=== PATIENT | female | born 1930 | race Caucasian/White ===

== ENCOUNTER 2017-01-18 18:56 | Emergency (ER) | payer MEDICARE, MEDICAID ==
[~2017-01-18] VITALS: Ht 165.1 cm; Wt 81.6 kg
[~2017-01-18 18:56] MED LIST: ASPI81TA31 PO; ATOR10TA PO; CHOL10005 PO; CYAN1TAB43 PO; VALS160T2 PO
--- NOTE | 2017-01-18 19:18 | NUR ---
Patient discharged to home in stable conditon. Written and verbal after care instructions given. Patient verbalizes understanding of instructions.
== END 2017-01-18 19:19 | disposition home or self-care (01) ==
LOC: ER 18:59
DX: J02.9 Acute pharyngitis, unspecified (principal); R05 Cough; F10.20 Alcohol dependence, uncomplicated; I10 Essential (primary) hypertension; Z79.82 Long term (current) use of aspirin
CPT/HCPCS: 99283; A4663

== ENCOUNTER 2020-11-29 20:27 | Inpatient (IN) | payer MEDICARE, OTHER ==
[~2020-11-29] VITALS: Ht 167.6 cm; Wt 88.9 kg
[~2020-11-29 20:27] MED LIST changes: -CHOL10005 PO; -CYAN1TAB43 PO
--- NOTE | 2020-11-29 21:00 | NUR ---
Received a 89 yr old female from [facility] to [facility] with admitting diagnosis S/P R HIP REPLACEMENT 11/27/20. Hx of gout,CAD,HTN,HDL,obesity,ANAND, CHF, AAOx3,Palestinian speaking, able to make needs known. Needs attended. NO SOB noted on RA saturating at 88%. Place NC on 2L saturating @ 97%. Pt is WBAT, on bed rest. Skin assessment completed. multiple bruising noticed. Right hip original dressing dry and intact, no drainage noted. No s/s of infection. No acute distress noted at this moment. Belongings list completed and placed in chart. Oriented pt to the room. Safety measures in place. Incontinent on bedpan. Denies any pain nor any discomfort at the moment. Dr Gamez aware of patient's admission and he said he will reconcile meds. Dr Obando also made aware of patient's admission. Continue with plan of care.
[2020-11-29 21:29] VITALS: BP 125/52
[2020-11-29] MEDS ORDERED: Z GUARD REMEDY PASTE 57 GM TUBE TOP PRN (21:30)
[2020-11-29] MEDS ORDERED: METF-440 PO (22:25)
[2020-11-29] MEDS ORDERED: ASPI-866 PO (22:25)
[2020-11-29] MEDS ORDERED: OLME1TAB88 PO (22:25)
[2020-11-29] MEDS ORDERED: ALLO100T PO (22:25)
[2020-11-29] MEDS ORDERED: SPIR25TA6 PO (22:25)
[2020-11-29] MEDS ORDERED: CHOL100043 PO (22:25)
[2020-11-29] MEDS ORDERED: ATOR20TA PO (22:25)
[2020-11-29] MEDS ORDERED: OMEP20CA15 PO (22:25)
[2020-11-29] MEDS: HYDROCODONE/APAP 10-325 MG TABLET PO PRN (23:14)
--- NOTE | 2020-11-29 23:30 | NUR ---
Assisted pt on the bedpan, not voiding yet. will monitor. c/o of pain 8/10 in right hip, administered PRN NORCO, will monitor for effectiveness. Safety measures maintained. Call light and all personal items within reach. Will continue to monitor.
--- NOTE | 2020-11-30 01:20 | NUR ---
pt is c/o of discomfort, states " need to pee, but can't. Assisted onto bedpan, no void yet. performed bladder scan, 315ml noted. Notified MD Limon, Hillary, with new orders of Solis catheter placement. Solis cath inserted 16FR, tolerated well, no acute distress noted. Output 700ml, pt states " I feel so much better." Pt is resting in bed, all needs attended too. Will continue plan of care.
[2020-11-30 04:27] VITALS: BP 124/50
[2020-11-30] MEDS: PANTOPRAZOLE SODIUM 40 MG TABLET.DR PO SCH (06:04)
[2020-11-30 07:01] LABS: BASOPHILS % (AUTO) 0.5 % (0.0-2.0); EOSINOPHILS # (AUTO) 0.2 K/uL (0.0-0.7); EOSINOPHILS % (AUTO) 1.7 % (0.0-7.0); HEMATOCRIT 24.1 % (31.2-41.9); HEMOGLOBIN 8.1 g/dL (10.9-14.3); LYMPHOCYTES % (AUTO) 10.6 % (20.5-51.5); MEAN CORPUSCULAR HEMOGLOBIN 32.9 uug (24.7-32.8); MEAN CORPUSCULAR HGB CONC 34 g/dL (32.3-35.6); MEAN CORPUSCULAR VOLUME 97.7 fL (75.5-95.3); MONOCYTES # (AUTO) 0.9 K/uL (2.0-10.0); MONOCYTES % (AUTO) 9.1 % (0.0-11.0); NEUTROPHILS # (AUTO) 7.3 K/uL (1.8-8.9); NEUTROPHILS % (AUTO) 78.1 % (38.5-71.5); PLATELET COUNT (AUTO) 230 K/uL (179-408); WHITE BLOOD COUNT (AUTO) 9.4 K/uL (3.8-11.8)
[2020-11-30 07:14] LABS: RED BLOOD CELL COUNT(AUTO) 2.46 MIL/uL (3.63-4.92)
[2020-11-30 07:19] LABS: BILIRUBIN,TOTAL 0.4 mg/dL (0.2-1.0); CREATININE 1.2 mg/dL (0.6-1.3); POTASSIUM 3.7 mmol/L (3.5-5.1)
--- NOTE | 2020-11-30 07:28 | NUR ---
Handoff from Nereida Ford RN. Jon Belcher RN
[2020-11-30 08:18] VITALS: BP 120/52
[2020-11-30] MEDS: ALLOPURINOL 100 MG TABLET PO SCH (08:22)
[2020-11-30] MEDS: SPIRONOLACTONE 25 MG TABLET PO SCH ×2 (08:22→17:04)
[2020-11-30] MEDS: HYDROCHLOROTHIAZIDE 12.5 MG CAPSULE PO SCH (08:23)
[2020-11-30] MEDS: ASPIRIN 81 MG TAB.CHEW PO SCH (08:23)
[2020-11-30] MEDS: VALSARTAN 160 MG TABLET PO SCH (08:23)
[2020-11-30] MEDS: METFORMIN HCL 500 MG TABLET PO SCH ×2 (08:23→18:10)
[2020-11-30] MEDS: HYDROCODONE/APAP 10-325 MG TABLET PO PRN (09:00)
[2020-11-30] MEDS ORDERED: CHOLECALCIFEROL 1,000 UNIT TABLET PO SCH (09:00)
[2020-11-30 15:14] VITALS: BP 109/40
--- NOTE | 2020-11-30 19:41 | NUR ---
Handoff with ABIMAEL Arroyo. Jon Belcher RN
[2020-11-30 20:31] VITALS: BP 105/48
[2020-11-30] MEDS: ATORVASTATIN 10 MG TABLET PO SCH (20:47)
[2020-12-01 04:35] VITALS: BP 129/53
[2020-12-01] MEDS: PANTOPRAZOLE SODIUM 40 MG TABLET.DR PO SCH (06:28)
--- NOTE | 2020-12-01 06:36 | NUR ---
Pt well rested in between care.V/S stable on 2L. Safety measures in place. Will endorse to oncoming nurse.
[2020-12-01 06:47] LABS: BASOPHILS % (AUTO) 0.5 % (0.0-2.0); EOSINOPHILS # (AUTO) 0.2 K/uL (0.0-0.7); EOSINOPHILS % (AUTO) 2.7 % (0.0-7.0); HEMATOCRIT 24.7 % (31.2-41.9); HEMOGLOBIN 8.2 g/dL (10.9-14.3); LYMPHOCYTES # (AUTO) 0.9 K/uL (20.0-40.0); LYMPHOCYTES % (AUTO) 10.3 % (20.5-51.5); MEAN CORPUSCULAR HEMOGLOBIN 32.8 uug (24.7-32.8); MEAN CORPUSCULAR HGB CONC 33 g/dL (32.3-35.6); MEAN CORPUSCULAR VOLUME 98.4 fL (75.5-95.3); MONOCYTES # (AUTO) 0.9 K/uL (2.0-10.0); MONOCYTES % (AUTO) 9.6 % (0.0-11.0); NEUTROPHILS % (AUTO) 76.9 % (38.5-71.5); PLATELET COUNT (AUTO) 250 K/uL (179-408); RED BLOOD CELL COUNT(AUTO) 2.51 MIL/uL (3.63-4.92); WHITE BLOOD COUNT (AUTO) 9.1 K/uL (3.8-11.8)
[2020-12-01 07:08] LABS: BILIRUBIN,TOTAL 0.5 mg/dL (0.2-1.0); MAGNESIUM 1.9 mg/dL (1.8-2.4)
--- NOTE | 2020-12-01 07:45 | NUR ---
Awake, alert, oriented x 4, South Sudanese speaking. O2 at 2L/NC. RLE with good pulse, warm to touch. Patient complaining of feeling heaviness on lower extremities. Solis catheter to drainage bag. Noted left hand redness and swelling.
[2020-12-01 07:55] VITALS: BP 108/66
[2020-12-01] MEDS: ALLOPURINOL 100 MG TABLET PO SCH (08:44)
[2020-12-01] MEDS: METFORMIN HCL 500 MG TABLET PO SCH ×2 (08:44→17:18)
[2020-12-01] MEDS: HYDROCHLOROTHIAZIDE 12.5 MG CAPSULE PO SCH (08:45)
[2020-12-01] MEDS: SPIRONOLACTONE 25 MG TABLET PO SCH ×2 (08:45→17:18)
[2020-12-01] MEDS: ASPIRIN 81 MG TAB.CHEW PO SCH (08:45)
[2020-12-01] MEDS: VALSARTAN 160 MG TABLET PO SCH (08:45)
[2020-12-01] MEDS: HYDROCODONE/APAP 10-325 MG TABLET PO PRN (08:46)
[2020-12-01] MEDS: CHOLECALCIFEROL 1,000 UNIT TABLET PO SCH (08:46)
--- NOTE | 2020-12-01 12:00 | NUR ---
Venous doppler of left hand done.
--- NOTE | 2020-12-01 13:55 | NUR ---
WOUND CARE CONSULT: PT SEEN FOR SKIN ASSESSMENT AND NOTED TO HAVE RT HIP SURGICAL DRESSINGS, DRY AND INTACT AND DISCOLORATION TO BUTTOCKS, PRESENT ON ADMISSION. PT ALSO NOTED TO HAVE LEFT HAND SWELLING AND REDNESS WELL ARM DISCOLORATION. SURGICAL CONSULT REQUESTED FOR HAND BY DR DENT. DR MCKEON NOTIFIED OF CONSULT REQUEST. PT IS INCONTINENT AT TIMES BUT ABLE TO ASSIST WITH TURNING AND REPOSITIONING IN BED. RECOMMENDATIONS MADE FOR SKIN PROTECTION. DISCUSSED WITH NURSING STAFF. Addendum: 12/01/20 at 1400 by JERAD CASTILLO RN Amended: Links added.
[2020-12-01 15:22] VITALS: BP 110/62
[2020-12-01 20:24] VITALS: BP 134/38
[2020-12-01] MEDS: ATORVASTATIN 10 MG TABLET PO SCH (20:35)
[2020-12-01] MEDS: DOXYCYCLINE HYCLATE 100 MG TABLET PO SCH (20:36)
--- NOTE | 2020-12-01 22:08 | NUR ---
resting in bed upon initial rounds. AAOx3-4 Patient speaks Vincentian. VSS. No acute distress noted. Admitted for right hip fracture. S/P right total hip replacement. Right hip dressing clean dry and intact.Solis catheter intact draining yellow urine. I & O monitor. Tolerated po meds well. Left hand reddenned and swollen. On ABT given as scheduled. Needs attended. Kept comfortable. Will monitor patient.Fall precautions maintained. Siderails up for safety.
[2020-12-02 04:49] VITALS: BP 148/64
[2020-12-02] MEDS: PANTOPRAZOLE SODIUM 40 MG TABLET.DR PO SCH (06:16)
--- NOTE | 2020-12-02 07:03 | NUR ---
End of shift notes: Slept well. VSS no acute distress noted. Solis catheter draining well.eft hand swollen and red. Patient on ABT. Denies any pain nor any discomfort.
--- NOTE | 2020-12-02 07:30 | NUR ---
received change of shift report, pt awake alert and oriented, pt is Citizen Of [place] speaking. Pt on 2L O2 saturating at 95%, no signs of distress noted, no reports of pain reported at this time. Pt able to walk to restroom as tolerated with walker and assist. Pt had right arm bruise and a left hand cellulitis. Two sores on the patients bottom. pt voids using forte catheter, right hip dressing clean dry and intact. Head of bed semi fowlers, bed in low and locked position, call light within reach, safety precautions in place, bed alarms on. will continue with plan of care.
[2020-12-02 08:00] VITALS: BP 132/49
[2020-12-02] MEDS: CHOLECALCIFEROL 1,000 UNIT TABLET PO SCH (08:38)
[2020-12-02] MEDS: HYDROCHLOROTHIAZIDE 12.5 MG CAPSULE PO SCH (08:39)
[2020-12-02] MEDS: ASPIRIN 81 MG TAB.CHEW PO SCH (08:39)
[2020-12-02] MEDS: ALLOPURINOL 100 MG TABLET PO SCH (08:39)
[2020-12-02] MEDS: SPIRONOLACTONE 25 MG TABLET PO SCH ×2 (08:39→17:46)
[2020-12-02] MEDS: METFORMIN HCL 500 MG TABLET PO SCH ×2 (08:39→17:46)
[2020-12-02] MEDS: VALSARTAN 80 MG TABLET PO SCH (08:40)
[2020-12-02] MEDS: DOXYCYCLINE HYCLATE 100 MG TABLET PO SCH ×2 (09:01→20:41)
[2020-12-02] MEDS: DOCUSATE SODIUM 100 MG CAPSULE PO SCH ×2 (10:34→20:41)
--- NOTE | 2020-12-02 12:51 | NUR ---
INTERDISCIPLINARY TEAM CONFERENCE
--- NOTE | 2020-12-02 12:59 | NUR ---
INDIVIDUALIZED PLAN OF CARE
[2020-12-02] MEDS: PROTEIN SUPPLEMENT (PROSTAT) 30 ML LIQUID PO SCH (13:19)
[2020-12-02 16:30] VITALS: BP 156/48
[2020-12-02] MEDS: MIRALAX 17 GM POWD.PACK PO PRN (17:46)
--- NOTE | 2020-12-02 19:40 | NUR ---
received pt in bed, awake and verbally responsive, able to make needs known. Pt on oxygen at 2LPM, shows no s/s of respiratory distress. Redness and swelling noted on L hand, denies any pain. Pt with forte, draining well. Safety measures in place, call light within reach, will continue to monitor.
[2020-12-02 20:00] VITALS: BP 140/50
[2020-12-02] MEDS: ATORVASTATIN 10 MG TABLET PO SCH (20:41)
[2020-12-03] MEDS: TEMAZEPAM 7.5 MG CAPSULE PO PRN ×2 (00:34→23:17)
[2020-12-03 04:00] VITALS: BP 134/44
[2020-12-03] MEDS: PANTOPRAZOLE SODIUM 40 MG TABLET.DR PO SCH (06:08)
--- NOTE | 2020-12-03 06:37 | NUR ---
Pt in bed, asleep but easily arousable to name and touch. Verbally responsive and able to make needs known. Still on oxygen at 2LPM, saturating 98%, shows no s/s of respiratory distress. Denies any pain, forte draining well. Wound dressing done. Safety measures maintained, call light within reach, all needs attended.
[2020-12-03 08:39] VITALS: BP 146/59
[2020-12-03] MEDS: VALSARTAN 80 MG TABLET PO SCH (09:09)
[2020-12-03] MEDS: ALLOPURINOL 100 MG TABLET PO SCH (09:09)
[2020-12-03] MEDS: CHOLECALCIFEROL 1,000 UNIT TABLET PO SCH (09:09)
[2020-12-03] MEDS: HYDROCHLOROTHIAZIDE 12.5 MG CAPSULE PO SCH (09:09)
[2020-12-03] MEDS: SPIRONOLACTONE 25 MG TABLET PO SCH ×2 (09:09→17:29)
[2020-12-03] MEDS: DOCUSATE SODIUM 100 MG CAPSULE PO SCH ×2 (09:09→20:41)
[2020-12-03] MEDS: ASPIRIN 81 MG TAB.CHEW PO SCH (09:09)
[2020-12-03] MEDS: METFORMIN HCL 500 MG TABLET PO SCH ×2 (09:09→17:29)
[2020-12-03] MEDS: DOXYCYCLINE HYCLATE 100 MG TABLET PO SCH ×2 (09:10→20:41)
[2020-12-03] MEDS: PROTEIN SUPPLEMENT (PROSTAT) 30 ML LIQUID PO SCH (09:10)
[2020-12-03] MEDS ORDERED: VANCOMYCIN IV 1,250 MG in IV DEXTROSE 5% 250 ML IV SCH (13:00)
[2020-12-03] MEDS ORDERED: LIDOCAINE 1.5%-EPI 1:200,000 30 ML VIAL INJ ONE (13:45)
[2020-12-03] MEDS: VANCOMYCIN IV 1,250 MG in IV DEXTROSE 5% 250 ML IV SCH (15:00)
[2020-12-03 15:52] VITALS: BP 130/74
[2020-12-03] MEDS ORDERED: LIDOCAINE 1%-EPI MPF 1:200,000 30 ML VIAL INJ ONE (16:15)
[2020-12-03] MEDS: HYDROCODONE/APAP 10-325 MG TABLET PO PRN (17:34)
--- NOTE | 2020-12-03 19:45 | NUR ---
PATIENT ALERT ORIENTED, SPEAK COLOMBIAN, COLOMBIAN SPEAKING RN ABLE TO INTERPRET FOR THE PATIENT. PATIENT CONTINUE ON PAIN MANAGEMENT DUE R HIP SURGERY. PATIENT DRESSING ON R HIP INTACT, NO BLEEDING NOTED, PATIENT ON OXYGEN 2LPM, NO DESATURATION NOTED, CONT TO MONITOR. PATIENT CASTILLO CATH PATENT DRAINING WITH YELLOW COLOR URINE IN MODERATE AMOUNT, PATIENT ABLE TO DRINK PLENTY OF WATER, CALL LIGHT WITHIN REACH.
[2020-12-03 20:00] VITALS: BP 142/38
--- NOTE | 2020-12-03 20:20 | NUR ---
NOTIFY DR FILIPE TOLEDO REQUEST IF PATIENT CAN HAVE 2ND DOSE MODERNA COVID VACCINE. DR. DENT OKEYED THE REQUEST.
[2020-12-03] MEDS: ATORVASTATIN 10 MG TABLET PO SCH (20:41)
[2020-12-04 05:14] VITALS: BP 139/61
[2020-12-04] MEDS: HYDROCODONE/APAP 10-325 MG TABLET PO PRN ×2 (06:07→23:50)
[2020-12-04] MEDS: PANTOPRAZOLE SODIUM 40 MG TABLET.DR PO SCH (06:08)
--- NOTE | 2020-12-04 06:26 | NUR ---
PATIENT ALERT ORIENTED, NO SOB NO CHEST PAIN. PATIENT COMPLAIN OF R HIP PAIN 8/10 AND REQUEST FOR PAIN MEDICATION. PATIENT MEDICATED ORDERED, DRESSING ON R HIP INTACT, NO BLEEDING NOTED, ASSIST WITH TURNING AND REPOSITIONING, ABDUCTION PILLOW IN PLACE, CALL LIGHT WITHIN REACH.
[2020-12-04 06:29] LABS: BASOPHILS % (AUTO) 0.6 % (0.0-2.0); EOSINOPHILS # (AUTO) 0.3 K/uL (0.0-0.7); EOSINOPHILS % (AUTO) 3.7 % (0.0-7.0); HEMATOCRIT 27.5 % (31.2-41.9); HEMOGLOBIN 9.2 g/dL (10.9-14.3); LYMPHOCYTES # (AUTO) 1.2 K/uL (20.0-40.0); LYMPHOCYTES % (AUTO) 16.1 % (20.5-51.5); MEAN CORPUSCULAR HEMOGLOBIN 32.8 uug (24.7-32.8); MEAN CORPUSCULAR HGB CONC 33 g/dL (32.3-35.6); MEAN CORPUSCULAR VOLUME 98.5 fL (75.5-95.3); MONOCYTES # (AUTO) 0.8 K/uL (2.0-10.0); MONOCYTES % (AUTO) 10.7 % (0.0-11.0); NEUTROPHILS # (AUTO) 5.3 K/uL (1.8-8.9); NEUTROPHILS % (AUTO) 68.9 % (38.5-71.5); PLATELET COUNT (AUTO) 339 K/uL (179-408); RED BLOOD CELL COUNT(AUTO) 2.79 MIL/uL (3.63-4.92); WHITE BLOOD COUNT (AUTO) 7.7 K/uL (3.8-11.8)
[2020-12-04 06:42] LABS: CREATININE 0.8 mg/dL (0.6-1.3); POTASSIUM 3.8 mmol/L (3.5-5.1)
[2020-12-04 08:00] VITALS: BP 131/52
[2020-12-04] MEDS: DOCUSATE SODIUM 100 MG CAPSULE PO SCH ×2 (08:22→20:15)
[2020-12-04] MEDS: CHOLECALCIFEROL 1,000 UNIT TABLET PO SCH (08:22)
[2020-12-04] MEDS: VALSARTAN 80 MG TABLET PO SCH (08:23)
[2020-12-04] MEDS: ASPIRIN 81 MG TAB.CHEW PO SCH (08:23)
[2020-12-04] MEDS: ALLOPURINOL 100 MG TABLET PO SCH (08:23)
[2020-12-04] MEDS: DOXYCYCLINE HYCLATE 100 MG TABLET PO SCH ×2 (08:23→20:14)
[2020-12-04] MEDS: METFORMIN HCL 500 MG TABLET PO SCH ×2 (08:23→17:02)
[2020-12-04] MEDS: SPIRONOLACTONE 25 MG TABLET PO SCH ×2 (08:23→17:03)
[2020-12-04] MEDS: HYDROCHLOROTHIAZIDE 12.5 MG CAPSULE PO SCH (08:23)
[2020-12-04] MEDS: PROTEIN SUPPLEMENT (PROSTAT) 30 ML LIQUID PO SCH ×3 (08:24→17:03)
[2020-12-04] MEDS: VANCOMYCIN IV 1,250 MG in IV DEXTROSE 5% 250 ML IV SCH (11:00)
--- NOTE | 2020-12-04 13:40 | NUR ---
left hand still with swelling, and redness, wound bed is red, with moderate serosanguineous drainage during dressing change, no odor noted, no purulent drainage noted, continue with dressing as ordered, and continue to monitor
[2020-12-04 16:15] VITALS: BP 122/46
--- NOTE | 2020-12-04 16:49 | NUR ---
forte catheter draining clear yellow urine, incision site is dry and clean
[2020-12-04] MEDS: MIRALAX 17 GM POWD.PACK PO PRN (17:03)
[2020-12-04] MEDS: ATORVASTATIN 10 MG TABLET PO SCH (20:15)
[2020-12-04 20:39] VITALS: BP 111/51
[2020-12-04] MEDS: TEMAZEPAM 7.5 MG CAPSULE PO PRN (21:42)
--- NOTE | 2020-12-04 22:07 | NUR ---
AAOx3-4 No distress noted. VSS. Solis catheter draining yellow urine. All due meds given No complaints presented so far. Kept comfortable. Dressing intact to bilateral buttocks as well to right hip incision. Left hand dressing intact, S/P I & D. IV ABT given as scheduled. No ill effects noted. Will monitor patient.
[2020-12-05 04:27] VITALS: BP 123/51
[2020-12-05] MEDS: HYDROCODONE/APAP 10-325 MG TABLET PO PRN (05:40)
[2020-12-05] MEDS: PANTOPRAZOLE SODIUM 40 MG TABLET.DR PO SCH (06:17)
--- NOTE | 2020-12-05 06:38 | NUR ---
End of shift notes: Slept at short intervals. AAOx3-4 Needs attended. VSS. complained of right hip pain, medicated with House as ordered. Will monitor for relief. Fall precautions maintained. Siderails up for safety. Solis catheter intact draining well.
[2020-12-05 07:44] VITALS: BP 136/44
[2020-12-05] MEDS: HYDROCHLOROTHIAZIDE 12.5 MG CAPSULE PO SCH (08:01)
[2020-12-05] MEDS: VALSARTAN 80 MG TABLET PO SCH (08:02)
[2020-12-05] MEDS: DOCUSATE SODIUM 100 MG CAPSULE PO SCH ×2 (08:02→20:11)
[2020-12-05] MEDS: ASPIRIN 81 MG TAB.CHEW PO SCH (08:02)
[2020-12-05] MEDS: CHOLECALCIFEROL 1,000 UNIT TABLET PO SCH (08:02)
[2020-12-05] MEDS: METFORMIN HCL 500 MG TABLET PO SCH ×2 (08:02→17:47)
[2020-12-05] MEDS: ALLOPURINOL 100 MG TABLET PO SCH (08:02)
[2020-12-05] MEDS: SPIRONOLACTONE 25 MG TABLET PO SCH ×2 (08:02→17:00)
[2020-12-05] MEDS: DOXYCYCLINE HYCLATE 100 MG TABLET PO SCH (08:03)
[2020-12-05] MEDS: PROTEIN SUPPLEMENT (PROSTAT) 30 ML LIQUID PO SCH ×2 (08:04→17:48)
[2020-12-05] MEDS: MIRALAX 17 GM POWD.PACK PO PRN (08:05)
[2020-12-05] MEDS: VANCOMYCIN IV 1,250 MG in IV DEXTROSE 5% 250 ML IV SCH (08:51)
[2020-12-05] MEDS ORDERED: IV NORMAL SALINE 250 ML IV PRN (09:15)
--- NOTE | 2020-12-05 13:22 | NUR ---
wound treatment done for left hand, noted with small amount of serosanguineous drainage, left posterior hand still noted with swelling and redness, however compare to yesterday, looks better, tx done to both buttocks intact DTI, still intact, instructed patient to turn on side every 2 hours, spoke to daughter, and let the daughter translate to patient, per daughter patient understood. incision site is clean and dry, forte catheter still intact, draining yellow color urine, offered patient to discontinue forte, patient stated later, will try another day, explained to daughter to translate the risks of having forte catheter, daughter stated that patient understood, patient is able to ambulate to the bathroom with stand by assist.
--- NOTE | 2020-12-05 16:14 | NUR ---
patient systolic blood pressure noted in 100s, denied any dizziness, able to ambulate to the bathroom with stand by assist, alert, oriented x4, no sob, resp even nonlabored, skin warm and dry to touch, no acute distress noted, will continue to monitor, encouraged to drink more fluids, communicated with patient through family, patient verbalized understanding of it, confirmed with family member on the phone, will endorse accordingly Addendum: 12/05/20 at 1619 by JADA MOREL RN, RN family member is her daughter KARAN. who helps translate, patient dials her number from her cellphone
[2020-12-05 16:46] VITALS: BP 102/39
[2020-12-05 18:26] VITALS: BP 104/50
[2020-12-05] MEDS: ATORVASTATIN 10 MG TABLET PO SCH (20:11)
[2020-12-05] MEDS: TEMAZEPAM 7.5 MG CAPSULE PO PRN (20:18)
[2020-12-05 20:50] VITALS: BP 112/47
--- NOTE | 2020-12-05 21:11 | NUR ---
Received pt resting in bed and watching tv. AAO x4, Turkmen speaking, able to make needs known. No acute distress noted. Denies pain/ discomfort. Due meds and sleeping pill as per pt request given as ordered. Solis catheter draining well with clear yellow colored urine. Safety measures maintained. Call light and personal items within reach. Will continue to monitor.
[2020-12-06 04:15] VITALS: BP 109/49
[2020-12-06] MEDS: PANTOPRAZOLE SODIUM 40 MG TABLET.DR PO SCH (06:14)
[2020-12-06] MEDS: VANCOMYCIN IV 1,250 MG in IV DEXTROSE 5% 250 ML IV SCH (06:30)
[2020-12-06 07:17] LABS: BASOPHILS # (AUTO) 0.1 K/uL (0.0-8.0); BASOPHILS % (AUTO) 0.5 % (0.0-2.0); EOSINOPHILS # (AUTO) 0.3 K/uL (0.0-0.7); EOSINOPHILS % (AUTO) 2.4 % (0.0-7.0); HEMATOCRIT 24.4 % (31.2-41.9); HEMOGLOBIN 8.2 g/dL (10.9-14.3); LYMPHOCYTES # (AUTO) 1.6 K/uL (20.0-40.0); MEAN CORPUSCULAR HEMOGLOBIN 32.8 uug (24.7-32.8); MEAN CORPUSCULAR HGB CONC 34 g/dL (32.3-35.6); MEAN CORPUSCULAR VOLUME 97.8 fL (75.5-95.3); MONOCYTES % (AUTO) 9.8 % (0.0-11.0); NEUTROPHILS # (AUTO) 7.5 K/uL (1.8-8.9); NEUTROPHILS % (AUTO) 72.3 % (38.5-71.5); PLATELET COUNT (AUTO) 377 K/uL (179-408); WHITE BLOOD COUNT (AUTO) 10.4 K/uL (3.8-11.8)
[2020-12-06 07:20] LABS: RED BLOOD CELL COUNT(AUTO) 2.49 MIL/uL (3.63-4.92)
[2020-12-06 07:30] LABS: BILIRUBIN,TOTAL 0.5 mg/dL (0.2-1.0); CREATININE 1.1 mg/dL (0.6-1.3); MAGNESIUM 1.5 mg/dL (1.8-2.4); PHOSPHOROUS 3.9 mg/dL (2.5-4.9); POTASSIUM 4.3 mmol/L (3.5-5.1); TOTAL PROTEIN, SERUM 5.9 g/dL (6.4-8.2)
[2020-12-06 08:00] VITALS: BP 119/44
[2020-12-06 09:00] LABS: THYROID STIMULATING HORMONE 2.782 mIU/mL (0.358-3.740)
[2020-12-06] MEDS ORDERED: MAGNESIUM SULFATE/D5W 100 ML IV SCH (09:30)
[2020-12-06] MEDS: METFORMIN HCL 500 MG TABLET PO SCH ×2 (09:36→17:16)
[2020-12-06] MEDS: ALLOPURINOL 100 MG TABLET PO SCH (09:36)
[2020-12-06] MEDS: DOCUSATE SODIUM 100 MG CAPSULE PO SCH ×2 (09:36→20:41)
[2020-12-06] MEDS: ASPIRIN 81 MG TAB.CHEW PO SCH (09:36)
[2020-12-06] MEDS: SPIRONOLACTONE 25 MG TABLET PO SCH ×2 (09:36→17:15)
[2020-12-06] MEDS: CHOLECALCIFEROL 1,000 UNIT TABLET PO SCH (09:36)
[2020-12-06] MEDS: ENSURE ENLIVE (VAN) 240 ML LIQUID PO SCH (09:37)
[2020-12-06] MEDS: PROTEIN SUPPLEMENT (PROSTAT) 30 ML LIQUID PO SCH ×2 (09:37→17:15)
[2020-12-06] MEDS: VALSARTAN 80 MG TABLET PO SCH (09:45)
[2020-12-06] MEDS: HYDROCHLOROTHIAZIDE 12.5 MG CAPSULE PO SCH (09:45)
[2020-12-06] MEDS: ACETAMINOPHEN 325 MG TABLET PO PRN (10:04)
[2020-12-06 16:26] VITALS: BP 99/42
--- NOTE | 2020-12-06 19:00 | NUR ---
EOSS: Pt in bed, awake, Ethiopian speaking, able to make needs throughout shift. No s/s of acute distress. Denies pain/discomfort. Pt noted with low blood pressure this am, morning BP medication held. Pt asymptomatic, denied dizziness, no SOB, HR WNL. Dr. Silviano LANE aware with new orders. VSS at this time. Spoke with pt's daughter Madeleine, who is aware of medications and plan of care. Wound care administered per order. R FA 20 g IV patent and intact. Solis catheter patent, draining yellow urine. Safety measures and fall precautions maintained. Call light and belongings within reach. Will endorse care to maintenance technician 3rd shift nurse.
[2020-12-06 20:12] VITALS: BP 117/41
[2020-12-06] MEDS: TEMAZEPAM 7.5 MG CAPSULE PO PRN (21:07)
--- NOTE | 2020-12-06 22:31 | NUR ---
Received patient resting in bed and watching TV. AAO x4, Martiniquais speaking, able to make needs known. No acute distress noted. Denies pain/ discomfort. Due medication administered and sleeping pill as per pt request given as ordered. Solis catheter draining well with clear yellow colored urine. Safety measures maintained. Call light and personal items within reach. Will continue to monitor.
[2020-12-07 04:15] VITALS: BP 115/52
--- NOTE | 2020-12-07 05:19 | NUR ---
spoke with daughter at 2100 updated about patient. Pt in bed,asleep but easily arousable to name and touch. Slept throughout night Verbally responsive and able to make needs known, on room air saturating 95%, shows no s/s of respiratory distress. Denies any pain, Solis draining well. Wound dressing intact. Safety measures maintained, call light within reach, all needs attended.
[2020-12-07] MEDS: VANCOMYCIN IV 1,250 MG in IV DEXTROSE 5% 250 ML IV SCH (05:30)
[2020-12-07] MEDS: PANTOPRAZOLE SODIUM 40 MG TABLET.DR PO SCH (06:32)
--- NOTE | 2020-12-07 07:04 | NUR ---
Dressing change of right hip no no s/s of infection noted. Stool specimen collected and sent to the lab. will endorse accordingly to oncoming shift.
[2020-12-07 07:28] LABS: CREATININE 1.3 mg/dL (0.6-1.3); POTASSIUM 4.1 mmol/L (3.5-5.1)
[2020-12-07 08:21] VITALS: BP 122/46
[2020-12-07] MEDS: DOCUSATE SODIUM 100 MG CAPSULE PO SCH ×2 (08:40→20:05)
[2020-12-07] MEDS: ASPIRIN 81 MG TAB.CHEW PO SCH (08:40)
[2020-12-07] MEDS: METFORMIN HCL 500 MG TABLET PO SCH ×2 (08:41→17:31)
[2020-12-07] MEDS: ALLOPURINOL 100 MG TABLET PO SCH (08:41)
[2020-12-07] MEDS: CHOLECALCIFEROL 1,000 UNIT TABLET PO SCH (08:41)
[2020-12-07] MEDS: ENSURE ENLIVE (VAN) 240 ML LIQUID PO SCH (08:46)
[2020-12-07] MEDS: ACIDOPHILUS/BULGARICUS CHEW TAB PO SCH ×2 (10:00→20:05)
[2020-12-07] MEDS: PROTEIN SUPPLEMENT (PROSTAT) 30 ML LIQUID PO SCH ×2 (10:02→17:45)
[2020-12-07 11:00] LABS: *OCCULT BLOOD STOOL NEGATIVE (NEGATIVE)
[2020-12-07 16:40] VITALS: BP 111/33
[2020-12-07 20:06] VITALS: BP 122/41
[2020-12-07] MEDS: TEMAZEPAM 7.5 MG CAPSULE PO PRN (21:57)
--- NOTE | 2020-12-07 22:22 | NUR ---
Received patient resting in bed and watching Bruneian show on TV AAO x4, Bruneian speaking, able to make needs known. No acute distress noted. Denies pain/discomfort. Due medication and PRN sleeping pill as per patient request administered as ordered. Solis catheter draining well with clear yellow colored urine. Safety measures maintained. Call light and personal items within reach. Will continue to monitor.
[2020-12-08] MEDS: VANCOMYCIN IV 1,250 MG in IV DEXTROSE 5% 250 ML IV SCH (03:30)
--- NOTE | 2020-12-08 04:35 | NUR ---
trough level 21.3 called pharmacy and spoke to pharmacist, Yee, to verify whether to give vanco scheduled @0330 or hold per parameter. As per pharmacist, held scheduled: 12/08/20 0330 vancomycin 1250mg IV pending for in house pharmacist to dose.
[2020-12-08 04:45] VITALS: BP 123/87
[2020-12-08] MEDS: PANTOPRAZOLE SODIUM 40 MG TABLET.DR PO SCH (06:27)
[2020-12-08 08:00] VITALS: BP 115/31
[2020-12-08] MEDS: METFORMIN HCL 500 MG TABLET PO SCH ×2 (08:43→17:05)
[2020-12-08] MEDS: DOCUSATE SODIUM 100 MG CAPSULE PO SCH ×3 (08:43→20:22)
[2020-12-08] MEDS: CHOLECALCIFEROL 1,000 UNIT TABLET PO SCH (08:44)
[2020-12-08] MEDS: ACIDOPHILUS/BULGARICUS CHEW TAB PO SCH ×2 (08:44→20:22)
[2020-12-08] MEDS: ALLOPURINOL 100 MG TABLET PO SCH (08:44)
[2020-12-08] MEDS: ASPIRIN 81 MG TAB.CHEW PO SCH (08:44)
[2020-12-08] MEDS: PROTEIN SUPPLEMENT (PROSTAT) 30 ML LIQUID PO SCH ×2 (08:45→17:05)
[2020-12-08] MEDS: ENSURE ENLIVE (VAN) 240 ML LIQUID PO SCH (08:46)
--- NOTE | 2020-12-08 14:08 | NUR ---
Verified with pharmacist Karen if OK to give due vancomycin IV at this time with a Vanco trough result of 21.3. Per pharmacist, Vancomycin dose already adjusted and time interval between doses already adjusted so it is OK to administer Vancomycin IV.
[2020-12-08] MEDS: VANCOMYCIN IV 1,000 MG in IV DEXTROSE 5% 250 ML IV SCH (14:09)
[2020-12-08 16:00] VITALS: BP 120/42
[2020-12-08 20:10] VITALS: BP 138/49
[2020-12-08] MEDS: TEMAZEPAM 7.5 MG CAPSULE PO PRN (21:48)
--- NOTE | 2020-12-08 22:21 | NUR ---
Received pt resting in bed and watching tv. AAO x4, Bahraini speaking, able to make needs known. Dropped off vitamin D supplements to pharmacy. No acute distress noted. Denies pain/ discomfort. Due meds and sleeping pill as per pt request given as ordered. Solis catheter draining well with clear yellow colored urine. Kept clean and comfortable. Safety measures maintained. Call light and personal items within reach. Will continue to monitor.
[2020-12-09 04:50] VITALS: BP 124/47
[2020-12-09] MEDS: PANTOPRAZOLE SODIUM 40 MG TABLET.DR PO SCH (06:00)
[2020-12-09 07:00] LABS: CREATININE 1.2 mg/dL (0.6-1.3); POTASSIUM 4.2 mmol/L (3.5-5.1)
[2020-12-09 08:00] VITALS: BP 115/41
[2020-12-09] MEDS: ALLOPURINOL 100 MG TABLET PO SCH (08:51)
[2020-12-09] MEDS: DOCUSATE SODIUM 100 MG CAPSULE PO SCH ×3 (08:51→20:39)
[2020-12-09] MEDS: ACIDOPHILUS/BULGARICUS CHEW TAB PO SCH ×2 (08:51→20:39)
[2020-12-09] MEDS: ASPIRIN 81 MG TAB.CHEW PO SCH (08:51)
[2020-12-09] MEDS: METFORMIN HCL 500 MG TABLET PO SCH ×2 (08:51→18:48)
[2020-12-09] MEDS: ENSURE ENLIVE (VAN) 240 ML LIQUID PO SCH (08:52)
[2020-12-09] MEDS: PROTEIN SUPPLEMENT (PROSTAT) 30 ML LIQUID PO SCH ×2 (08:52→17:59)
[2020-12-09] MEDS ORDERED: CHOLECALCIFEROL PO SCH (09:00)
--- NOTE | 2020-12-09 11:30 | NUR ---
WOUND CARE FOLLOW UP: PT SEEN ON REQUEST OF NURSING STAFF FOR BUTTOCKS DISCOLORATION, PRESENT ON ADMISSION. NO TENDERNESS NOTED AND DISCOLORATION IS RESOLVING. PT FOLLOWED BY SURGICAL TEAM FOR WOUND/SKIN TREATMENT PLAN. DISCUSSED SKIN PROTECTION WITH NURSING STAFF. LEFT HAND DRESSING IS DRY AND INTACT. WILL SEE PRN.
[2020-12-09] MEDS: VANCOMYCIN IV 1,000 MG in IV DEXTROSE 5% 250 ML IV SCH (14:31)
--- NOTE | 2020-12-09 15:55 | NUR ---
INTERDISCIPLINARY TEAM CONFERENCE
[2020-12-09 16:03] VITALS: BP 120/44
--- NOTE | 2020-12-09 18:58 | NUR ---
EOSS: Pt in bed, no acute distress, denies pain/discomfort. VSS at this time. R FA IV noted leaking, no s/s of infiltration noted. Removed catheter intact, no signs of shearing noted. L FA 22 g IV started, patent and intact. Due medications given per order, no a/r noted. Clarified with pharmacy due Vancomycin OK to give with trough of 21.3, pharmacy verified OK to give, dose had been adjusted. Wound care on left hand provided with RENU Arana at bedside. Assisted pt safely from bed to restroom with FWW. Call light and belongings within reach. Will endorse care to night order selector.
[2020-12-09 20:00] VITALS: BP 128/33
--- NOTE | 2020-12-09 21:45 | NUR ---
AAOx3-4 Watching TV upon rounds. Needs attended. Kept comfortable. Compliant with meds. Denies any pain nor any discomfort. Left hand dressing clean dry and intact. Patient on IV ABT given at scheduled times secondary to cellulitis on left hand. No ill effects noted. Solis catheter discontinued per MD's order. Will monitor for voiding. Fall precautions maintained. Siderails up for safety.
[2020-12-09] MEDS: TEMAZEPAM 7.5 MG CAPSULE PO PRN (22:34)
[2020-12-10 04:50] VITALS: BP 126/51
[2020-12-10] MEDS: PANTOPRAZOLE SODIUM 40 MG TABLET.DR PO SCH (06:21)
--- NOTE | 2020-12-10 06:28 | NUR ---
End of shift notes: Patient slept at short intervals. Needs attended. Incontinent of urine x4. Kept clean and dry. Repositioned for comfort. Denies any pain nor any discomfort. All needs attended and met.
[2020-12-10 06:43] LABS: CREATININE 1.1 mg/dL (0.6-1.3); POTASSIUM 3.8 mmol/L (3.5-5.1)
[2020-12-10 07:33] VITALS: BP 125/52
[2020-12-10] MEDS: DOCUSATE SODIUM 100 MG CAPSULE PO SCH ×2 (08:34→20:34)
[2020-12-10] MEDS: ALLOPURINOL 100 MG TABLET PO SCH (08:34)
[2020-12-10] MEDS: METFORMIN HCL 500 MG TABLET PO SCH ×2 (08:34→17:22)
[2020-12-10] MEDS: ASPIRIN 81 MG TAB.CHEW PO SCH (08:34)
[2020-12-10] MEDS: ACIDOPHILUS/BULGARICUS CHEW TAB PO SCH ×2 (08:34→20:34)
[2020-12-10] MEDS: ENSURE ENLIVE (VAN) 240 ML LIQUID PO SCH (08:35)
[2020-12-10] MEDS: PROTEIN SUPPLEMENT (PROSTAT) 30 ML LIQUID PO SCH ×2 (08:35→17:22)
[2020-12-10] MEDS: VIT D3 PO SCH (09:59)
[2020-12-10] MEDS: VANCOMYCIN IV 1,000 MG in IV DEXTROSE 5% 250 ML IV SCH (13:54)
[2020-12-10 16:00] VITALS: BP 105/37
[2020-12-10 20:00] VITALS: BP 130/55
--- NOTE | 2020-12-10 20:34 | NUR ---
Received pt resting in bed and watching tv. AAO x4, Andorran speaking, able to make needs known. No acute distress noted. Denies pain/ discomfort. Voiding freely. Refused Colace as pt had x4 BM today. Safety measures maintained. Call light and personal items within reach. Will continue to monitor.
[2020-12-10] MEDS: TEMAZEPAM 7.5 MG CAPSULE PO PRN (22:29)
[2020-12-11 04:00] VITALS: BP 115/52
[2020-12-11] MEDS: PANTOPRAZOLE SODIUM 40 MG TABLET.DR PO SCH (06:03)
[2020-12-11 07:03] LABS: CREATININE 1.1 mg/dL (0.6-1.3)
[2020-12-11 07:05] LABS: BASOPHILS # (AUTO) 0.1 K/uL (0.0-8.0); BASOPHILS % (AUTO) 0.9 % (0.0-2.0); EOSINOPHILS # (AUTO) 0.2 K/uL (0.0-0.7); EOSINOPHILS % (AUTO) 3.3 % (0.0-7.0); HEMATOCRIT 24.3 % (31.2-41.9); HEMOGLOBIN 8.3 g/dL (10.9-14.3); LYMPHOCYTES # (AUTO) 1.2 K/uL (20.0-40.0); LYMPHOCYTES % (AUTO) 17.5 % (20.5-51.5); MEAN CORPUSCULAR HEMOGLOBIN 33.4 uug (24.7-32.8); MEAN CORPUSCULAR HGB CONC 34 g/dL (32.3-35.6); MEAN CORPUSCULAR VOLUME 98.2 fL (75.5-95.3); MONOCYTES # (AUTO) 0.7 K/uL (2.0-10.0); MONOCYTES % (AUTO) 10.7 % (0.0-11.0); NEUTROPHILS # (AUTO) 4.7 K/uL (1.8-8.9); NEUTROPHILS % (AUTO) 67.6 % (38.5-71.5); PLATELET COUNT (AUTO) 422 K/uL (179-408)
[2020-12-11 07:06] LABS: RED BLOOD CELL COUNT(AUTO) 2.47 MIL/uL (3.63-4.92)
[2020-12-11 07:55] VITALS: BP 127/59
[2020-12-11] MEDS: ACIDOPHILUS/BULGARICUS CHEW TAB PO SCH ×2 (08:26→20:51)
[2020-12-11] MEDS: ASPIRIN 81 MG TAB.CHEW PO SCH (08:26)
[2020-12-11] MEDS: METFORMIN HCL 500 MG TABLET PO SCH ×2 (08:26→17:26)
[2020-12-11] MEDS: ALLOPURINOL 100 MG TABLET PO SCH (08:26)
[2020-12-11] MEDS: ENSURE ENLIVE (VAN) 240 ML LIQUID PO SCH (08:26)
[2020-12-11] MEDS: DOCUSATE SODIUM 100 MG CAPSULE PO SCH ×2 (08:27→20:51)
[2020-12-11] MEDS: VIT D3 PO SCH (08:28)
[2020-12-11] MEDS: PROTEIN SUPPLEMENT (PROSTAT) 30 ML LIQUID PO SCH ×2 (08:29→17:26)
[2020-12-11] MEDS ORDERED: VANCOMYCIN IV 750 MG in IV DEXTROSE 5% 250 ML IV SCH (14:00)
[2020-12-11 16:04] VITALS: BP 118/38
--- NOTE | 2020-12-11 18:59 | NUR ---
no changes noted during shift, participated with PT,OT services, tolerated well
[2020-12-11 20:00] VITALS: BP 114/44
[2020-12-11] MEDS: TEMAZEPAM 7.5 MG CAPSULE PO PRN (20:55)
[2020-12-12 04:00] VITALS: BP 121/57
[2020-12-12] MEDS: PANTOPRAZOLE SODIUM 40 MG TABLET.DR PO SCH (06:13)
--- NOTE | 2020-12-12 06:39 | NUR ---
Shift End Report: Vs stable. Slept good. All needs attended and met. No significant event reported all night. Continue current rehab plan of care.
[2020-12-12 07:15] LABS: CREATININE 1.3 mg/dL (0.6-1.3); POTASSIUM 4.1 mmol/L (3.5-5.1)
--- NOTE | 2020-12-12 07:30 | NUR ---
Received patient awake in bed. Alert and oriented x 4. On room air. No signs of distress. With Left Forearm 22 gauge IV access. Patient denies of pain or discomfort. Will continue to monitor.
[2020-12-12] MEDS: PROTEIN SUPPLEMENT (PROSTAT) 30 ML LIQUID PO SCH ×2 (08:32→17:37)
[2020-12-12] MEDS: ACIDOPHILUS/BULGARICUS CHEW TAB PO SCH ×2 (08:35→21:49)
[2020-12-12] MEDS: METFORMIN HCL 500 MG TABLET PO SCH ×2 (08:35→17:50)
[2020-12-12] MEDS: VIT D3 PO SCH (08:35)
[2020-12-12] MEDS: ALLOPURINOL 100 MG TABLET PO SCH (08:35)
[2020-12-12] MEDS: DOCUSATE SODIUM 100 MG CAPSULE PO SCH ×2 (08:36→21:00)
[2020-12-12] MEDS: ASPIRIN 81 MG TAB.CHEW PO SCH (08:36)
[2020-12-12] MEDS: ENSURE ENLIVE (VAN) 240 ML LIQUID PO SCH (08:36)
[2020-12-12 09:12] VITALS: BP 134/50
[2020-12-12 15:52] VITALS: BP 113/53
--- NOTE | 2020-12-12 19:00 | NUR ---
RECD PT IN BED, NO ACUTE DISTRESS NOTED,RESTED FAIRLY WELL.
[2020-12-12 20:41] VITALS: BP 137/45
[2020-12-12] MEDS: TEMAZEPAM 7.5 MG CAPSULE PO PRN (21:51)
--- NOTE | 2020-12-13 02:37 | NUR ---
SLEPT AT LONG INTERVALS, NEEDS ATTENDED TO.
[2020-12-13 04:32] VITALS: BP 125/55
--- NOTE | 2020-12-13 05:39 | NUR ---
UNEVENTFUL NITE,NO COMPLAINTS PRESENTED.ENDORSED TO AM NURSE IN FAIR CONDITION.
[2020-12-13] MEDS: PANTOPRAZOLE SODIUM 40 MG TABLET.DR PO SCH (06:20)
[2020-12-13 08:00] VITALS: BP 124/56
[2020-12-13] MEDS: ALLOPURINOL 100 MG TABLET PO SCH (08:38)
[2020-12-13] MEDS: PROTEIN SUPPLEMENT (PROSTAT) 30 ML LIQUID PO SCH ×2 (08:38→17:29)
[2020-12-13] MEDS: DOCUSATE SODIUM 100 MG CAPSULE PO SCH ×2 (08:38→21:09)
[2020-12-13] MEDS: ASPIRIN 81 MG TAB.CHEW PO SCH (08:38)
[2020-12-13] MEDS: ENSURE ENLIVE (VAN) 240 ML LIQUID PO SCH (08:38)
[2020-12-13] MEDS: ACIDOPHILUS/BULGARICUS CHEW TAB PO SCH ×2 (08:38→21:09)
[2020-12-13] MEDS: METFORMIN HCL 500 MG TABLET PO SCH ×2 (08:38→17:29)
[2020-12-13] MEDS: VIT D3 PO SCH (08:39)
[2020-12-13 16:15] VITALS: BP 139/57
[2020-12-13 20:15] VITALS: BP 128/48
[2020-12-13] MEDS: TEMAZEPAM 7.5 MG CAPSULE PO PRN (21:35)
--- NOTE | 2020-12-13 21:40 | NUR ---
Patient AAOx3-4 [place] Islander speaking Watching TV upon rounds, all due meds administered, PRN sleeping medication administered upon request no c/o pain appears calm and comfortable Left hand dressing clean dry and intact. no s/s of infection noted, Fall precautions observed Side rails up for safety, continue with current plan of care.
[2020-12-14 04:40] VITALS: BP 137/54
--- NOTE | 2020-12-14 05:26 | NUR ---
Patient slept sound all night, with no acute distress or complain. PRN Sleeping medication as ordered and requested effective no ADR noted,assisted patient to bathroom with walker in AM after that bathroom privilege patient let back again. All needs anticipated, Will endorse accordingly AM shift.
[2020-12-14] MEDS: PANTOPRAZOLE SODIUM 40 MG TABLET.DR PO SCH (06:45)
--- NOTE | 2020-12-14 07:25 | NUR ---
PT is in bed resting, no acute distress noted. On room air and saturating at 98%. pt is Ivorian speaking but is able to make needs known. Pt has no complaints as of now, will continue to monitor and give medications as scheduled
[2020-12-14 07:52] VITALS: BP 121/49
[2020-12-14] MEDS: METFORMIN HCL 500 MG TABLET PO SCH (09:02)
[2020-12-14] MEDS: VIT D3 PO SCH (09:02)
[2020-12-14] MEDS: ASPIRIN 81 MG TAB.CHEW PO SCH (09:02)
[2020-12-14] MEDS: DOCUSATE SODIUM 100 MG CAPSULE PO SCH (09:02)
[2020-12-14] MEDS: ACIDOPHILUS/BULGARICUS CHEW TAB PO SCH (09:02)
[2020-12-14] MEDS: ALLOPURINOL 100 MG TABLET PO SCH (09:02)
[2020-12-14] MEDS: ENSURE ENLIVE (VAN) 240 ML LIQUID PO SCH (09:03)
[2020-12-14] MEDS: PROTEIN SUPPLEMENT (PROSTAT) 30 ML LIQUID PO SCH (09:03)
--- NOTE | 2020-12-14 11:12 | NUR ---
Discharge order was placed by DR. Obando. Pt is to be picked up at 3/4pm
[2020-12-14] MEDS: HYDROCODONE/APAP 10-325 MG TABLET PO PRN (13:37)
[2020-12-14] MEDS: ACETAMINOPHEN 325 MG TABLET PO PRN (13:51)
[2020-12-14 15:25] VITALS: BP 101/53
--- NOTE | 2020-12-14 15:35 | NUR ---
Pt has been discharged from the hospital in a wheelchair. Was picked up by Mick De Luna. Pt in stable condition BP 101/53, Pulse 85, Temp 98.3, O2 97% on room air. All belongings with pt as well as all proper documentation. Teaching was completed. Pt Safely transferred to vehicle. Pt is discharged home with home health.
== END 2020-12-14 15:45 | disposition home health service (06) | DRG 559 ==
PROVIDERS: ADMIT Physical Medicine & Rehabilitation Pain Medicine; ATTEND Physical Medicine & Rehabilitation Pain Medicine
PROC: 0H9GXZZ Drainage of Left Hand Skin, External Approach (ICD-10-PCS; principal; 2020-12-03)
DX: S72.001D Fracture of unspecified part of neck of right femur, subsequent encounter for closed fracture with routine healing (principal); E43 Unspecified severe protein-calorie malnutrition; N17.0 Acute kidney failure with tubular necrosis; D68.59 Other primary thrombophilia; I48.20 Chronic atrial fibrillation, unspecified; L03.114 Cellulitis of left upper limb; L02.512 Cutaneous abscess of left hand; S61.412D Laceration without foreign body of left hand, subsequent encounter; S30.0XXD Contusion of lower back and pelvis, subsequent encounter; W18.30XD Fall on same level, unspecified, subsequent encounter; D64.9 Anemia, unspecified; E78.5 Hyperlipidemia, unspecified; I50.9 Heart failure, unspecified; I11.0 Hypertensive heart disease with heart failure; I25.10 Atherosclerotic heart disease of native coronary artery without angina pectoris; I48.91 Unspecified atrial fibrillation; Z96.641 Presence of right artificial hip joint; Z95.5 Presence of coronary angioplasty implant and graft; B95.2 Enterococcus as the cause of diseases classified elsewhere; D50.9 Iron deficiency anemia, unspecified; M10.9 Gout, unspecified; M19.90 Unspecified osteoarthritis, unspecified site; R26.9 Unspecified abnormalities of gait and mobility
CPT/HCPCS: 36415; 71045; 73502; 83735; 84100; 84443; 85025; 87070; 87077; A4663; J3370; J3475; J3490; J7040; J7050; J7060; J8499